=== PATIENT | female | born 1970 | race African-American/Black ===

== ENCOUNTER 2019-05-29 14:54 | Inpatient (IN) | payer OTHER, BC ==
[2019-05-29] MEDS: SOD CHLORIDE 0.9% 1,000 ML IV (16:37)
[2019-05-29] MEDS: KETOROLAC 30 MG INJ IV (16:37)
[2019-05-29] MEDS: morphine 2 MG INJ IV (22:29)
[2019-05-29] MEDS: SERTRALINE 50 MG TAB PO (22:29)
[2019-05-29] MEDS ORDERED: ONDANSETRON 4 MG INJ IV (22:30)
[2019-05-29] MEDS ORDERED: morphine 4 MG/ML VIAL IV (22:30)
[2019-05-29] MEDS ORDERED: VANCOMYCIN IV PER PHARMACY XX (22:30)
[2019-05-29] MEDS: VANCOMYCIN 1.5 GM/NS 250 ML 250 ML IVPB (23:29)
[2019-05-30] MEDS: morphine 2 MG INJ IV ×3 (04:01→13:35)
[2019-05-30] MEDS: VANCOMYCIN 1 GM 250 ML IVPB ×2 (11:44→22:50)
[2019-05-30] MEDS ORDERED: POLYMYXIN/BACITRACIN 1L IRRIG (15:37)
[2019-05-30] MEDS ORDERED: BUPIVACAINE 0.25%/EPI (SDV) 10 ML INJ (15:48)
[2019-05-30] MEDS ORDERED: LIDOCAINE 2% (SDV) 5 ML INJ (16:14)
[2019-05-30] MEDS ORDERED: ONDANSETRON 4 MG INJ (16:14)
[2019-05-30] MEDS ORDERED: PROPOFOL 20 ML (16:14)
[2019-05-30] MEDS ORDERED: MEPERIDINE 100 MG INJ (16:14)
[2019-05-30] MEDS ORDERED: METOCLOPRAMIDE 10 MG INJ (16:16)
[2019-05-30] MEDS ORDERED: SEVOFLURANE 15 MIN (16:30)
[2019-05-30] MEDS ORDERED: HYDROCODONE/APAP (5/325) TAB PO (17:30)
[2019-05-30] MEDS ORDERED: HYDROmorphONE 1 MG/5 ML IV SYRINGE IV ×3 (18:00)
[2019-05-30] MEDS ORDERED: METOCLOPRAMIDE 10 MG INJ IV (18:00)
[2019-05-30] MEDS ORDERED: MEPERIDINE 25 MG INJ IV (18:00)
[2019-05-30] MEDS ORDERED: FENTAnyl 50 MCG/ML VIAL IV ×3 (18:00)
[2019-05-30] MEDS ORDERED: MIDAZOLAM 1 MG/ML 2 ML INJ IV (18:00)
[2019-05-30] MEDS ORDERED: EPHEDrine 25 MG/5 ML SYG IV (18:00)
[2019-05-30] MEDS ORDERED: ONDANSETRON 4 MG INJ IV (18:00)
[2019-05-30] MEDS ORDERED: hydrALAzine 20 MG INJ IV (18:00)
[2019-05-30] MEDS ORDERED: LABETALOL HCL 20MG INJ IV (18:00)
[2019-05-30] MEDS ORDERED: DIPHENHYDRAMINE 50 MG INJ IV (18:00)
[2019-05-30] MEDS: SERTRALINE 50 MG TAB PO (21:56)
[2019-05-31] MEDS: ACETAMINOPHEN 325 MG TAB PO (01:25)
[2019-05-31] MEDS: VANCOMYCIN 1 GM 250 ML IVPB (11:12)
[2019-05-31] MEDS: morphine 2 MG INJ IV (14:20)
[2019-05-31] MEDS ORDERED: VANCOMYCIN 1 GM 250 ML IVPB (19:00)
== END 2019-05-31 17:42 | disposition home health service (06) | DRG 585 ==
LOC: FTE 14:54 → PP2 19:14
PROC: 0H9T0ZX Drainage of Right Breast, Open Approach, Diagnostic (ICD-10-PCS; principal; 2019-05-30 12:00)
DX: N61.1 Abscess of the breast and nipple (principal); E66.9 Obesity, unspecified; Z68.32 Body mass index [BMI] 32.0-32.9, adult; F32.9 Major depressive disorder, single episode, unspecified; F41.9 Anxiety disorder, unspecified
CPT/HCPCS: 36415; 76536; 80053; 80202; 81025; 85025; 85610; 85730; 87040-91; 87070; 87075; 88305; 96374; 99285-25